=== PATIENT | male | born 1955 | race Caucasian/White ===

== ENCOUNTER → 2020-06-03 | Day surgery (SDC) | payer OTHER ==
[~2020-06-03] MED LIST: Dextrose 5% in Water 250 ML ONE; Glucagon,Human Recombinant 1 MG Vial IVPUSH ONE; HYDROmorphone 1 MG/ML Syringe IVPUSH ONE; Lactated Ringers 1,000 ML ONE; Lidocaine 1% 2 ML ONE; Metoclopramide 10 MG/2 ML SDV IVPUSH ONE; Midazolam 1 MG/ML 2 ML SDV ONE; Norepinephrine 4 MG in Dextrose 5% in Water 246 ML IV ONE; Norepinephrine 4 MG/4 ML SDV ONE; Ondansetron 4 MG/2 ML SDV IVPUSH ONE; Ondansetron 4 MG/2 ML SDV ONE; Propofol 1,000 MG/100 ML SDV ONE; Propofol 200 MG/20 ML SDV ONE; Rocuronium 50 MG/5 ML Vial ONE; Sodium Chloride 0.9% 10 ML Syringe FLUSH PRN; Succinylcholine/Sod PF 100 MG/5 ML SYRINGE IV ONE; ePHEDrine Sulfate/0.9% NaCl/Pf 25 MG/5 ML SYRINGE IV ONE; fentaNYL 100 MCG/2 ML SDV IVPUSH ONE; propofoL 100 ML ONE
--- NOTE | 2020-06-03 19:37 | EDM.PDOC ---
ED HPI GENERAL MEDICAL PROBLEM - General Chief Complaint: ENT Problem Stated Complaint: [facility] Time Seen by Provider: 06/03/20 19:03 Source of Information: Reports: Patient, RN Notes Reviewed History Limitations: Reports: No Limitations - History of Present Illness INITIAL COMMENTS - FREE TEXT/NARRATIVE: Patient is a 65-year-old male who presents to the ED for the evaluation via [facility] for a food impaction bolus. Patient was at the [facility] in [place], states he took a few bites of food and then felt food get stuck in his esophagus. He has had issues with this in the past. And has had his esophagus stretched for this. His last episode was around 5 years ago. Patient notes that he is from out of town, but he has no other medical history that he is aware of, he has no known allergies. He states he is not having any respiratory distress, but can just state that the food bolus is there and he can feel it. He is having quite a bit of pain. He did get some fentanyl via ambulance service prior to arrival to the ER. His O2 sats are 96% on room air. Patient is mildly diaphoretic, and does appear to be in a moderate amount of pain. He further denies any other sick-like symptoms, fever/chills, cough/shortness of breath. Chest Pain Score (Numeric/FACES): 10 - Related Data Allergies Allergy/AdvReac Type Severity Reaction Status Date / Time No Known Allergies Allergy Verified 06/03/20 18:58 Home Meds: Home Meds Albuterol Sulfate [Proair Respiclick] 2 puff INH DAILY PRN 06/03/20 [History] Past Medical History HEENT History: Reports: Other (See Below) Other HEENT History: esophagus stricture Respiratory History: Reports: Asthma - Infectious Disease History Infectious Disease History: Reports: Chicken Pox, Measles - Past Surgical History GI Surgical History: Reports: EGD, Esophageal Dilatation Musculoskeletal Surgical History: Reports: Joint Replacement Other Musculoskeletal Surgeries/Procedures:: Wrist L Social & Family History - Tobacco Use Smoking Status *Q: Never Smoker - Caffeine Use Caffeine Use: Reports: Coffee - Alcohol Use Days Per Week of Alcohol Use: 7 Number of Drinks Per Day: 2 Total Drinks Per Week: 14 - Recreational Drug Use Recreational Drug Use: No ED ROS ENT - Review of Systems Review Of Systems: Comprehensive ROS is negative, except as noted in HPI. ED EXAM, ENT - Physical Exam Exam: See Below Exam Limited By: No Limitations General Appearance: Alert, WD/WN, No Apparent Distress (pt in no obvious respiratory distress, but does appear to be in a moderate amount of pain, and has emesis bag present at bedside. He has generalized diaphoresis.) Mouth/Throat: Normal Inspection, Normal Gums, Normal Lips, Normal Oropharynx, Normal Teeth Head: Atraumatic, Normocephalic Neck: Normal Inspection Respiratory/Chest: No Respiratory Distress, Lungs Clear, Normal Breath Sounds, No Accessory Muscle Use, Chest Non-Tender Cardiovascular: Normal Peripheral Pulses, Regular Rate, Rhythm, No Murmur GI/Abdominal: Normal Bowel Sounds, Soft, Non-Tender, No Distention, No Mass Extremities: Normal Inspection, Normal Capillary Refill Neurological: Alert, Oriented, Normal Cognition, No Motor/Sensory Deficits Psychiatric: Normal Affect, Normal Mood Skin: Warm, Dry, Intact, Normal Color, No Rash EKG INTERPRETATION EKG Date: 06/03/20 Time: 19:53 Rhythm: NSR Rate (Beats/Min): 64 [place]: LAD-Left [place] Deviation (-3 ) P-Wave: Present QRS: Normal ST-T: Normal QT: Normal Comparison: NA - No Prior EKG EKG Interpretation Comments: No obvious ischemia or acute ST changes noted, reviewed by myself and Dr. Argueta. Course - Vital Signs Last Recorded V/S: Last Vital Signs Temp 97.0 F 06/03/20 18:59 Pulse 66 06/03/20 18:59 Resp 24 H 06/03/20 18:59 BP 157/107 H 06/03/20 18:59 Pulse Ox 96 06/03/20 18:59 - Orders/Labs/Meds Orders: Active Orders 24 hr Category Date Time Status EKG Documentation Completion [RC] STAT Care 06/03/20 19:49 Active Notify Provider Consults [RC] ASDIRECTED Care 06/03/20 19:50 Active Peripheral IV Care [RC] . DIRECTED Care 06/03/20 19:04 Active Consult to Physician [CONS] Stat Cons 06/03/20 19:50 Active Sodium Chloride 0.9% [Saline Flush] Med 06/03/20 19:03 Active 10 ml FLUSH ASDIRECTED PRN Peripheral IV Insertion Adult [OM.PC] Routine Oth 06/03/20 19:04 Ordered Medication Orders Sodium Chloride (Saline Flush) 10 ml FLUSH ASDIRECTED PRN PRN Reason: Keep Vein Open Last Admin: 06/03/20 19:11 Dose: 10 ml Documented by: LEWIS Funes: Medications Generic Name Dose Route Start Last Admin Trade Name Freflavio PRN Reason Stop Dose Admin Sodium Chloride 10 ml 06/03/20 19:03 06/03/20 19:11 Saline Flush FLUSH 10 ml ASDIRECTED PRN Administration Keep Vein Open Discontinued Medications Generic Name Dose Route Start Last Admin Trade Name Freq PRN Reason Stop Dose Admin Fentanyl 25 mcg 06/03/20 19:03 06/03/20 19:11 Sublimaze IVPUSH 06/03/20 19:04 25 mcg ONETIME ONE Administration Glucagon 1 mg 06/03/20 19:03 06/03/20 19:30 Glucagen IVPUSH 06/03/20 19:04 1 mg ONETIME ONE Administration Hydromorphone HCl 1 mg 06/03/20 19:46 06/03/20 20:02 Dilaudid IVPUSH 06/03/20 19:47 1 mg ONETIME ONE Administration Metoclopramide HCl 10 mg 06/03/20 19:46 06/03/20 19:57 Reglan IVPUSH 06/03/20 19:47 10 mg ONETIME ONE Administration Ondansetron HCl 4 mg 06/03/20 19:03 06/03/20 19:10 Zofran IVPUSH 06/03/20 19:04 4 mg ONETIME ONE Administration - Re-Assessments/Exams Free Text/Narrative Re-Assessment/Exam: 06/03/20 19:37 Presents to the ED for evaluation of his food impaction bolus. IV medications have been ordered to try to help the food impaction bolus passed, otherwise will have to call in surgery to have emergent EGD. 06/03/20 19:48 The patient did keep a little bit of soda down after the combination medications, but shortly after the soda went down it came back up again and he is having more pain and nausea. Patient still feels like there is food stuck in his esophagus. He will be given some more pain medication and nausea medication and Dr. Sharif will be in to assess the patient. I will order EKG in the meantime for preop. Departure - Departure Time of Disposition: 19:50 Disposition: DC/Tfer to [facility] Clinical Impression: Food impaction of esophagus Qualifiers: Encounter type: initial encounter Qualified Code(s): T18.128A - Food in esophagus causing other injury, initial encounter - Discharge Information *PRESCRIPTION DRUG MONITORING PROGRAM REVIEWED*: No *COPY OF PRESCRIPTION DRUG MONITORING REPORT IN PATIENT YISSEL: No Sepsis Event Note (ED) - Evaluation Sepsis Screening Result: No Definite Risk - Focused Exam Vital Signs: Vital Signs Temp Pulse Resp BP Pulse Ox 06/03/20 18:59 97.0 F 66 24 H 157/107 H 96 - My Orders Last 24 Hours: My Active Orders 06/03/20 19:03 Sodium Chloride 0.9% [Saline Flush] 10 ml FLUSH ASDIRECTED PRN 06/03/20 19:04 Peripheral IV Care [RC] . DIRECTED Peripheral IV Insertion Adult [OM.PC] Routine 06/03/20 19:49 EKG Documentation Completion [RC] STAT 06/03/20 19:50 Notify Provider Consults [RC] ASDIRECTED Consult to Physician [CONS] Stat - Assessment/Plan Last 24 Hours: My Active Orders 06/03/20 19:03 Sodium Chloride 0.9% [Saline Flush] 10 ml FLUSH ASDIRECTED PRN 06/03/20 19:04 Peripheral IV Care [RC] . DIRECTED Peripheral IV Insertion Adult [OM.PC] Routine 06/03/20 19:49 EKG Documentation Completion [RC] STAT 06/03/20 19:50 Notify Provider Consults [RC] ASDIRECTED Consult to Physician [CONS] Stat
--- NOTE | 2020-06-03 20:19 | PCM.HP.2 ---
H&P History of Present Illness - General Date of Service: 06/03/20 Admit Problem/Dx: esophageal food bolus - History of Present Illness Initial Comments - Free Text/Narative: The patient is a 65 year old gentleman who presents with an esophageal food imp action/obstruction. He was eating steak earlier today and felt it not go down. He had pain in the substernal/epigastric area immediately. He started to spit up, and this became bloody after a while. He has a history of esophageal strictures, with 3-8 dilations in the past. Per family, he has already had 2 this year, and was scheduled to have a recheck in the near future. In the ED, he had trial of glucagon and this was not successful. The patient is from out of town, and plans to return home in 2 days. Chest Pain Score (Numeric/FACES): 10 - Related Data Allergies/Adverse Reactions: Allergies Allergy/AdvReac Type Severity Reaction Status Date / Time No Known Allergies Allergy Verified 06/03/20 18:58 Home Medications: Home Meds Albuterol Sulfate [Proair Respiclick] 2 puff INH DAILY PRN 06/03/20 [History] Past Medical History HEENT History: Reports: Other (See Below) Other HEENT History: esophagus stricture Respiratory History: Reports: Asthma - Infectious Disease History Infectious Disease History: Reports: Chicken Pox, Measles - Past Surgical History GI Surgical History: Reports: EGD, Esophageal Dilatation Musculoskeletal Surgical History: Reports: Joint Replacement Other Musculoskeletal Surgeries/Procedures:: Wrist L Social & Family History - Family History Cardiac: Denies: High Cholesterol, Hypertension Endocrine/Metabolic: Denies: Diabetes, type II - Tobacco Use Smoking Status *Q: Never Smoker - Caffeine Use Caffeine Use: Reports: Coffee - Alcohol Use Days Per Week of Alcohol Use: 7 Number of Drinks Per Day: 2 Total Drinks Per Week: 14 - Recreational Drug Use Recreational Drug Use: No H&P Review of Systems - Review of Systems: Review Of Systems: See Below General: Reports: No Symptoms HEENT: Reports: No Symptoms Pulmonary: Reports: No Symptoms Cardiovascular: Reports: No Symptoms Gastrointestinal: Reports: Abdominal Pain, Hematemesis, Vomiting Genitourinary: Reports: No Symptoms Musculoskeletal: Reports: No Symptoms Skin: Reports: No Symptoms Neurological: Reports: No Symptoms Hematologic/Lymphatic: Reports: No Symptoms Exam - Exam Exam: See Below - Vital Signs Vital Signs: Last Vital Signs Temp 36.1 C 06/03/20 18:59 Pulse 66 06/03/20 18:59 Resp 24 H 06/03/20 18:59 BP 157/107 H 06/03/20 18:59 Pulse Ox 96 06/03/20 18:59 Weight: 99.79 kg - Exam Quality Assessment: No: Supplemental Oxygen General: Alert, Oriented HEENT: Hearing Intact (some decreased hearing) Neck: Supple Lungs: Clear to Auscultation, Normal Respiratory Effort Cardiovascular: Regular Rate, Regular Rhythm GI/Abdominal Exam: Soft, No Distention, Tender (in epigastrium) Extremities: Normal Inspection Peripheral Pulses: 2+: Dorsalis Pedis (L), Dorsalis Pedis (R) Skin: Warm, Dry, Intact Neurological: Cranial Nerves Intact Neuro Extensive - Mental Status: Normal Mood/Affect Sepsis Event Note - Evaluation Sepsis Screening Result: No Definite Risk - Focused Exam Vital Signs: Vital Signs Temp Pulse Resp BP Pulse Ox 06/03/20 18:59 36.1 C 66 24 H 157/107 H 96 Date Exam was Performed: 06/03/20 Time Exam was Performed: 20:46 *Q Meaningful Use (ADM) - VTE Risk Assess *Q Each Risk Factor Represents 1 Point: Obesity ( BMI > 25 kg/m2) Total Score 1 Point Risk Factors: 1 Each Risk Factor Represents 2 Points: Age 60 - 74 Years Total Score 2 Point Risk Factors: 2 - Problem List (1) Status post dilatation of esophageal stricture SNOMED Code(s): 977176759, 373700340 ICD Code: Z98.890 - OTHER SPECIFIED POSTPROCEDURAL STATES; Z87.19 - PERSONAL HISTORY OF OTHER DISEASES OF THE DIGESTIVE SYSTEM Status: Acute Current Visit: Yes (2) Food impaction of esophagus SNOMED Code(s): 744023309 ICD Code: T18.128A - FOOD IN ESOPHAGUS CAUSING OTHER INJURY, INITIAL ENCOUNTER Status: Acute Current Visit: Yes Qualifiers: Encounter type: initial encounter Qualified Code(s): T18.128A - Food in esophagus causing other injury, initial encounter Problem List Initiated/Reviewed/Updated: Yes Orders Last 24hrs: Active Orders 24 hr Category Date Time Status EKG Documentation Completion [RC] STAT Care 06/03/20 19:49 Active Notify Provider Consults [RC] ASDIRECTED Care 06/03/20 19:50 Active Peripheral IV Care [RC] . DIRECTED Care 06/03/20 19:04 Active Consult to Physician [CONS] Stat Cons 06/03/20 19:50 Active Sodium Chloride 0.9% [Saline Flush] Med 06/03/20 19:03 Active 10 ml FLUSH ASDIRECTED PRN Peripheral IV Insertion Adult [OM.PC] Routine Oth 06/03/20 19:04 Ordered Medication Orders Sodium Chloride (Saline Flush) 10 ml FLUSH ASDIRECTED PRN PRN Reason: Keep Vein Open Last Admin: 06/03/20 19:11 Dose: 10 ml Documented by: LEWIS Assessment/Plan Comment:: 65 y/o male with esophageal food obstruction, possible repeat esophageal stricture - we discussed EGD with retrieval of the food bolus, and possible balloon dilation. We discussed increased risk of perforation with repeat dilations. His written consent was obtained. - NPO with IVF - plan for EGD with general anesthesia due to recent meal - will assess need for additional treatment based on findings during the procedure. Willa Jon MD General surgery - Mortality Measure Prognosis:: Good
--- NOTE | 2020-06-03 20:49 | PCM.PREANE ---
Preanesthetic Assessment - Procedure Proposed Procedure: EGD - Anesthesia/Transfusion/Family Hx Anesthesia History: Prior Anesthesia Without Reaction Family History of Anesthesia Reaction: No Transfusion History: No Prior Transfusion(s) Intubation History: Unknown ( ) - Review of Systems General: No Symptoms Pulmonary: Shortness of Breath Cardiovascular: No Symptoms Gastrointestinal: Abdominal Pain, Nausea Neurological: No Symptoms Other: Reports: None - Physical Assessment NPO Status Date: 06/03/20 NPO Status Time: 17:45 Vital Signs: Last Vital Signs Temp 97.0 F 06/03/20 18:59 Pulse 66 06/03/20 18:59 Resp 24 H 06/03/20 18:59 BP 157/107 H 06/03/20 18:59 Pulse Ox 96 06/03/20 18:59 Height: 1.78 m Weight: 99.79 kg ASA Class: 2E Mental Status: Alert & Oriented x3 Airway Class: Mallampati = 2 Dentition: Reports: White Signal(s) Thyro-Mental Finger Breadths: 3 Mouth Opening Finger Breadths: 3 ROM/Head Extension: Limited/Partial (tachypneic, distressed from abdominal pain) Lungs: Clear to Auscultation, Decreased Breath Sounds, Other Cardiovascular: Regular Rate, Regular Rhythm - Allergies Allergies/Adverse Reactions: Allergies Allergy/AdvReac Type Severity Reaction Status Date / Time No Known Allergies Allergy Verified 06/03/20 18:58 - Acknowledgements Anesthesia Type Planned: General Anesthesia Pt an Appropriate Candidate for the Planned Anesthesia: Yes Alternatives and Risks of Anesthesia Discussed w Pt/Guardian: Yes Pt/Guardian Understands and Agrees with Anesthesia Plan: Yes PreAnesthesia Questionnaire HEENT History: Reports: Other (See Below) Other HEENT History: esophagus stricture Respiratory History: Reports: Asthma - Infectious Disease History Infectious Disease History: Reports: Chicken Pox, Measles - Past Surgical History GI Surgical History: Reports: EGD, Esophageal Dilatation Musculoskeletal Surgical History: Reports: Joint Replacement Other Musculoskeletal Surgeries/Procedures:: Wrist L - SUBSTANCE USE Smoking Status *Q: Never Smoker Days Per Week of Alcohol Use: 7 Number of Drinks Per Day: 2 Total Drinks Per Week: 14 Recreational Drug Use History: No - HOME MEDS Home Medications: Home Meds Albuterol Sulfate [Proair Respiclick] 2 puff INH DAILY PRN 06/03/20 [History] - CURRENT (IN HOUSE) MEDS Current Meds: Current Medications Sodium Chloride (Saline Flush) 10 ml FLUSH ASDIRECTED PRN PRN Reason: Keep Vein Open Last Admin: 06/03/20 19:11 Dose: 10 ml Documented by: Discontinued Medications Fentanyl (Sublimaze) 25 mcg IVPUSH ONETIME ONE Stop: 06/03/20 19:04 Last Admin: 06/03/20 19:11 Dose: 25 mcg Documented by: Glucagon (Glucagen) 1 mg IVPUSH ONETIME ONE Stop: 06/03/20 19:04 Last Admin: 06/03/20 19:30 Dose: 1 mg Documented by: Hydromorphone HCl (Dilaudid) 1 mg IVPUSH ONETIME ONE Stop: 06/03/20 19:47 Last Admin: 06/03/20 20:02 Dose: 1 mg Documented by: Metoclopramide HCl (Reglan) 10 mg IVPUSH ONETIME ONE Stop: 06/03/20 19:47 Last Admin: 06/03/20 19:57 Dose: 10 mg Documented by: Ondansetron HCl (Zofran) 4 mg IVPUSH ONETIME ONE Stop: 06/03/20 19:04 Last Admin: 06/03/20 19:10 Dose: 4 mg Documented by:
--- NOTE | 2020-06-03 23:16 | PCM.PRNOTE ---
- Free Text/Narrative Note: Procedure: Left subclavian central line. Indication: Vascular access for pressors. Requested by: Dr. Willa Jon. Consent given by: Patient's . I was asked to place a central line so that the patient could receive IV Levophed. The patient was moved from the GI suite to trauma bay 1. The left subclavian area was prepped with chlorhexidine, and a sterile field was made using a holed drape. Local anesthesia was infiltrated using 1% lidocaine without epinephrine. The vein was accessed using the Seldinger technique. A 3 lumen, 7 Fr, 20 cm catheter was placed into the left subclavian vein and secured with suture at 19 cm. The guidewire was recovered. Good draw and flush all 3 lumens. A Tegaderm with Biogel dressing was applied. The patient tolerated the procedure well. Post-procedure portable chest x-ray reviewed. The cardiac silhouette is within normal limits. No pulmonary vascular congestion. No pleural effusions. No focal infiltrate. No pneumothorax. An ETT tip is seen about 1.5 to 2 cm abobe the rodolfo. The left subclavian central line to be in good position, with the tip at the SVC/RA junction. Formal read per the Radiologist pending.
--- NOTE | 2020-06-03 23:27 | PCM.OPNOTE ---
- General Post-Op/Procedure Note Date of Surgery/Procedure: 06/03/20 Operative Procedure(s): EGD with removal of esophageal food obstruction Findings: Perforation in the esophagus just proximal to the level of the lower esophageal sphincter Pre Op Diagnosis: esophageal obstruction due to food bolus Post-Op Diagnosis: esophageal obstruction due to food bolus with lower esophageal perforation Anesthesia Technique: General ET Tube Primary Surgeon: Willa Jon Anesthesia Provider: Andrés Villeda Fluid Replacement, Intraop: 1,000 Output, Urine Amount: 0 EBL in mLs: 0 Drain/Tube Comments:: ETT in place, unable to pass OGT Complications: pt became septic and hypotensive at the end of the case, vasopressors started Condition: Critical
--- NOTE | 2020-06-03 23:42 | PCM.PRNOTE ---
- Free Text/Narrative Note: Operative Report Date of procedure: June 03, 2020 Preoperative diagnosis: Esophageal obstruction with food bolus Postoperative diagnosis: Esophageal obstruction with food bolus and esophageal perforation Surgeon: Willa Jon M.D. Procedure: EGD with removal of food bolus Anesthesia: General ET Microstrategy Architect: Andrés Villeda CRNA IV fluids: See anesthesia record Estimated blood loss: 0 mL Specimens: None. Indication: The patient is a 65 -year-old woman who presented with obstruction to his esophagus. The patient's main complaint was pain in the epigastrium/substernal area that started earlier this evening after eating steak. He had some spit up that became bloody. The patient was consented for an EGD with intervention. Risk of bleeding and perforation were discussed. The patient's consent was obtained Description of the procedure: The patient was taken to the endoscopy suite and placed on hemodynamic monitoring. The nurse screen room operator induced anesthesia and he had successful placement of an endotracheal tube. A bite block was placed. The patient was positioned in the left lateral decubitus position. A timeout was performed. The endoscope was gently placed into the mouth to the back of the pharynx and introduced into the esophagus. The scope was gently advanced under direct v isualization down to the level of the lower esophagus. The food bolus was encountered here. Small amount of blood was seen in the secretions surrounding the food bolus. The esophageal tissue in this area also looked very friable. A loop snare was then passed over the end of the food bolus, but it was difficult to ensnare the object. A small piece was snared off the end of the food impaction 2 different times. These pieces were then retrieved with the tripod device. The tripod was then used to grasp the object and it was withdrawn. This was an approximate 4.5cm piece of steak. We then reinserted the scope into the mouth. An additional small piece of meat was again retrieved using a tripod device. It did look like this was possibly in a second opening in the esophagus but it was not clearly visualized before the scope was withdrawn to remove the piece of food. We reinserted the scope into the mouth down to the level of the lower esophagus. We had difficulty passing the scope through the mid to distal esophagus using the therapeutic scope. The scope was then changed for a pediatric scope. We were then able to pass into the esophagus. There was a small amount of resist ance noted at the level of the lower esophageal sphincter as I would expect for stricture, we were able to enter the stomach. We proceeded to evaluate the stomach and the duodenum. The examined tissues were erythematous consistent with inflammation in the antrum and inflammation in the entire examined duodenum. Scope was retroflexed to look at the cardia of the stomach. There was some food and fluid in this area. This was suctioned. There was no evidence of hiatal hernia or injury to the top of the stomach. We then proceeded to withdraw the scope. It was at this point that we noted that there was an opening lateral to the lower esophageal sphincter. This was gently entered. There was another piece of food in this area. We did attempt to grasp this, but it could not be easily grasped. The opening was entered. It looked like a perforation covered with oral secretions as well as clot. It did not look acute. There was no fresh bleeding noted. Scope was then withdrawn while examining the esophageal mucosa. There is no evidence of other injury. We then were attempting to transfer the patient to the CT scanner for further evaluation. The patient's abdomen was then noted to be very distended. The patient became hypotensive at this point. The scope was then reintroduced into the mouth with an OG-tube attached via the tripod device. This was then inserted into the mouth into the esophagus. We were able to reach approximately 25 cm down, however there was a large amount of resistance. The esophagus was not insufflating appropriately for good visualization. The OG tube was then detached from the scope and attempt to pass this down. This was unsuccessful. The OG tube and scope were then withdrawn. The patient was then transferred to the emergency department for placement of a central line. Transfer was arranged to a center for the higher level of care for surgical intervention. Willa Jon MD General Surgery
--- NOTE | 2020-06-03 23:51 | PCM.SN.2 ---
- Free Text/Narrative Note: Anesthesia provider note: At the end of the procedure , at 2136 on the path to patient's emergence patient's blood pressure decreased, and also significant abdominal distention was noted. Dr Jon was called back to the room to assess the patient. After discussion the decision was made to insert orogastric tube using the endoscope. [id number] attempted insertion of OGT by the surgeon, but unsuccessful. Per surgeon decision the patient has been transferred to ER trauma bay 1 being sedated, muscle relaxed and intubated, using manual Ambu bag ventilation and reconnected to the monitors at 2231.. Patient has been prepared for airlift to [facility] in [place] for further evaluation. Report has been given to lanre Ruiz RN and care transferred at [id number].
--- NOTE | 2020-06-03 23:58 | PCM.POSTAN ---
POST ANESTHESIA ASSESSMENT - MENTAL STATUS Mental Status: Other (Sedated, intubated) - VITAL SIGNS Vital Signs: Vital signs on transfer of care in ER trauma bay 1: BP 89/62, HR 94, RR 20 controlled ventilation, SpO2: 97%, T:97F - RESPIRATORY Respiratory Status: Respiratory Rate WNL, Airway Patent (Intubated ETT #8 and manually ventilated vith AMBU bag), Supplemental Oxygen - CARDIOVASCULAR CV Status: Pulse Rate WNL, Low Blood Pressure - GASTROINTESTINAL GI Status: Other (significant abdominal distention) - POST OP HYDRATION Hydration Status: Adequate & Stable - OBSERVATIONS Free Text/Narrative:: Patient has been transferred to ER trauma bay 1 in preparation for the transfer to [facility]. Report given to Kelvin Ruiz RN.
--- NOTE | 2020-06-04 07:55 | CR ---
Chest: Portable supine view of the chest was obtained. Comparison: No previous study. Endotracheal tube is seen. Tip lies between the clavicle and rodolfo in satisfactory position. Left-sided subclavian line is seen with tip lying near the right atrial and superior vena cava junction. Slight parenchymal densities are seen within the left lung lung most likely representing areas of atelectasis. Right lung is clear. Questionable small left-sided pneumothorax is present. Subcutaneous air appears to be present within the neck. Bony structures are grossly intact. Impression: 1. Satisfactory position of left subclavian line and endotracheal tube. 2. Possible small left-sided pneumothorax. 3. Increased density within the left lung most likely representing areas of atelectasis. 4. Subcutaneous air within the neck. Diagnostic code #3 This report was dictated in MDT
== END ==
LOC: JD.ED 18:57 → JD.SDS 19:56
PROVIDERS: ATTEND Surgery
DX: T18.128A Food in esophagus causing other injury, initial encounter (principal); I95.9 Hypotension, unspecified; K22.3 Perforation of esophagus; K29.70 Gastritis, unspecified, without bleeding; K29.80 Duodenitis without bleeding; Z11.59 Encounter for screening for other viral diseases; Z98.890 Other specified postprocedural states; Z87.19 Personal history of other diseases of the digestive system; Z53.8 Procedure and treatment not carried out for other reasons
CPT/HCPCS: 36569; 43241; 43247; 87635; 93005; 96374; 96375; 99285; J0171; J0330; J1170; J1610; J2001; J2250; J2370; J2405; J2704; J2765; J3010; J7060; J7120; 00731; 93010; U0002